=== PATIENT | male | born 1980 | race Caucasian/White ===

== ENCOUNTER → 2016-12-18 | Outpatient (CLI) | payer OTHER ==
--- NOTE | 2016-12-18 22:21 | MR ---
EXAMINATION TYPE: MR lumbar spine wo con DATE OF EXAM: 12/18/2016 8:37 PM COMPARISON: NONE HISTORY: Lumbago with sciatica L and R side per order. Spinal stenosis and low back pain for 2 years causing pain into both lower extremities per patient. TECHNIQUE: Multiplanar, multisequence imaging of the lumbar spine is performed without IV contrast. FINDINGS: Sagittal images of the lumbar spine show vertebral body heights to appear satisfactory. The re is grade 1 anterolisthesis of L4 on L5 measured approximately 4 mm on sagittal image 9. There is d isc desiccation posteriorly with [id number] disc space narrowing L1-L2 level. There is disc christian iccation with mild to moderate disc space narrowing L4-L5 and L5-S1 levels. Posterior disc herniation s are seen at these levels on sagittal images. The conus medullaris remains normal in position and si gnal ending at T12-L1 disc space. The bone marrow signal intensity is within normal limits. No signi ficant spurring is seen. Axial images show the T12-L1 level to appear within normal limits. Axial images at the L1-L2 level show mild broad disc bulge with central disc protrusion mildly effaci ng anterior thecal sac on axial image 25. Bilateral neural foramina are patent. Axial images at L2-L3 and the L3-L4 levels are felt within normal limits. Axial images at the L4-L5 level show moderate facet arthropathy bilaterally. Right-sided pars defect is suspected on axial image 12 and sagittal image 12. There is probable left-sided pars defects less well seen on sagittal image 5. There is spondylolisthesis with mild broad disc bulge and left paracen tral/foraminal disc protrusion component. There is moderate right-sided anterior inferior neural fora noel narrowing encroaching along right L4 nerve on sagittal image 13 and moderate to severe left-hansel ed neural foraminal narrowing encroaching anterior inferior L4 nerve on the left and sagittal image 4 . Spinal canal is fairly well preserved. Axial images at L5-S1 level show mild facet degenerative changes bilaterally. There is broad-based ce ntral disc protrusion but spinal canal is preserved. Bilateral neural foramina are patent. Paraspinal muscle bulk is preserved. No suspicious retroperitoneal pathology is identified. IMPRESSION: Multilevel degenerative changes in the lumbar spine at L1-L2 and L5-S1 levels as detailed above. Most prominent findings are noted L4-L5 level where there are probably bilateral pars defects and spondylolisthesis or grade 1 anterolisthesis L4 on L5. There is moderate facet arthropathy and d isc herniation contributing to moderate to advanced left greater than right neural foraminal narrowin g with suspected effacement of both L4 nerves more prominent on sagittal than axial images.
== END | disposition home or self-care (01) ==
LOC: RADMRIMAIN 19:15
PROVIDERS: ATTEND Physician Assistant
DX: M99.73 Connective tissue and disc stenosis of intervertebral foramina of lumbar region (principal); M51.27 Other intervertebral disc displacement, lumbosacral region; M46.86 Other specified inflammatory spondylopathies, lumbar region; M47.817 Spondylosis without myelopathy or radiculopathy, lumbosacral region
CPT/HCPCS: 72148